=== PATIENT | male | born 1955 | race Caucasian/White ===

== ENCOUNTER 2020-04-01 23:58 | Emergency (ER) | payer OTHER, SELFPAY ==
[2020-04-01 23:59] VITALS: BP 142/92; PULSE 79; RESP 18; TEMP 36.3; O2SAT 100; BMI 23.5
[2020-04-02] VITALS (7 sets, daily range): BP systolic 115–142; BP diastolic 78–95; PULSE 69–90; RESP 16–22; O2SAT 94–99
--- NOTE | 2020-04-02 00:07 | ED.DCSUM_ITS ---
History of Present Illness Chief Complaint: Foreign Body Informant: Patient Onset: Today Context: Sudden Onset - after eating chicken several hrs ago Timing: Continuous Quality: feels stuck Location: esophagus/chest Current Severity: Moderate Maximum Severity: Moderate Worsened by: trying to drink fluids Relieved by: nothing Narrative: Patient feels like he has an esophageal obstruction which she has had in the past due to a Schatzki's ring. 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 Cardenas, and since he used to come to this hospital he presents here not realizing that he no longer has privileges here. He is not having any choking or shortness of breath. He denies any abdominal pain. He has been drinking sips or gulps of water and multiple attempts to get up the past for the past several hours without any success, he vomits everything up every time he tries. Prior similar symptoms: Yes - Past Medical History (1) Schatzki's ring of distal esophagus Status: Chronic Past Medical History - Allergies and Home Meds Allergies/Adverse Reactions: Allergies Sulfa (Sulfonamide Antibiotics) Allergy (Verified 04/01/20 23:59) Hives Primary Care Physician: Hipolito Merritt MD [Primary Care Provider] - Doctors: Ronald - GI Surgical History: - - esoph dilatation Smoking Status: Former smoker Review of Systems General: Denies: Chills, Fever, Sweats Eyes: Denies: Visual changes - bilaterally, Diplopia ENT: Denies: Rhinorrhea, Sore throat Cardiovascular: Denies: Chest pain, Palpitations Respiratory: Denies: Dyspnea, Cough, Dyspnea on exertion Gastrointestinal: Reports: Vomiting - when drinks/eats. Denies: Abdominal pain, Nausea, Diarrhea, Melena, Hematochezia Genitourinary: Denies: Dysuria, Hematuria, Frequency Musculoskeletal: Denies: Back pain, Extremity Pain Skin: Denies: Rash, Wounds Neurological: Denies: Headache, Weakness, Numbness Physical Exam Vital Signs/Narrative: Vital Signs Temp Pulse Resp BP Pulse Ox 04/01/20 23:59 97.4 F L 79 18 142/92 H 100 Inital Vital Signs reviewed: Yes General: Well nourished, Well developed, No Acute Distress Head: Normocephalic, Atraumatic Eyes: Perrl, EOMI ENT: Moist mucous membranes, No rhinorrhea, - - POP clear Neck: Supple, Nontender Cardiovascular: Regular rate, Regular rhythm, No murmurs. Negative for: Tachycardia Respiratory: No distress, CTA bilaterally, Chest nontender Abdomen: Soft, Nontender, Nondistended, Normal bowel sounds Extremities: Nontender, No edema Skin: Normal color, No rash Neurological: Alert, Oriented x3, Cranial nerves II-XII grossly intact, Normal Strength, Normal Sensation, Normal Gait Psychological: Normal affect, Normal Mood Diagnostic/Tx/Re-eval - Medical Decision Making Discussed with surgery on-call Dr. Salas who called in endoscopy and performed EGD at the bedside in the emergency department while I performed procedural sedation. Indeed the patient had a food bolus at the distal esophagus consistent with his prior Schatzki's ring diagnosis. There is some minor bleeding and irritation at the level of the distal esophagus after pushing the food into the stomach, but no major bleeding or other complications. Patient will be placed on a PPI, soft diet, will follow up afterwards for dilatation. Procedures Procedure(s): Procedural sedation --patient was consented for procedural sedation so that surgeon could perform bedside EGD. He had no questions after informed consent. He was monitored, given IV fluids, and his oxygen levels were monitored throughout the procedure. Patient was given propofol 100 mg, he is 81 kg. He required an additional 50 mg to be given a little later. He recovered uneventfully and there were no complications. ED Disposition - Plan for ED Patient: Diagnosis: Esophageal obstruction due to food impaction, Schatzki's ring of distal esophagus Instructions: ED Esophageal Foreign Body, Resolved, ED Soft Diet Prescriptions: Pantoprazole Sodium 40 mg PO DAILY #30 tablet. Prescription Printed Referrals: Alexey Salas MD [STAFF PHYSICIAN] - 1-2 Weeks (Call for appointment) Additional Instructions: Stick with a soft diet for the next 48 hours. When eating meat after that, chew well before swallowing.
[2020-04-02] MEDS: 0.9% Normal Saline 1,000 ML 150 ML IV (01:11)
[2020-04-02] MEDS: Propofol 200 MG/20 ML Vial IV BOLUS (01:13)
--- NOTE | 2020-04-02 01:25 | CON.PCM_ITS ---
Problem List (1) Esophageal obstruction due to food impaction Status: Acute Reason for Consult Date of Consultation: 04/02/20 History of Present Illness: The patient is a 64 year old M presents after eating chicken reporting that he feels like it is stuck in his throat. He reports that he has had this happen several times and he has had 3 dilations of his distal esophagus. Past Medical History Past Medical History (Chronic Problems): Chronic Problems Schatzki's ring of distal esophagus (Chronic) Allergies Sulfa (Sulfonamide Antibiotics) Allergy (Verified 04/01/20 23:59) Hives Home Medications: Ambulatory Orders Medication Instructions Recorded Pantoprazole Sodium 40 mg PO DAILY #30 tablet. 04/02/20 Surgical History: - - esoph dilatation Smoking Status: Former smoker Tobacco Use: Non-smoker - *Family History Maternal History Items: No pertinent history Review of Systems Constitutional: Denies: Anorexia, Fever HEENT: Reports: Dysphasia Cardiovascular: Denies: Chest Pain Respiratory: Denies: Cough, Shortness of Breath Gastrointestinal: Reports: Vomiting. Denies: Abdominal Pain, Nausea Genitourinary: Denies: Frequency Neurological: Denies: Balance problems Hematologic/ Lymphatic: Denies: Adenopathy Patient Problems: Active and Suspected Problems Esophageal obstruction due to food impaction (Acute) - Physical Exam Vitals/I&O's: Vital Signs Temp Pulse Resp BP Pulse Ox 97.4 F L 77 16 115/78 96 04/01/20 23:59 04/02/20 01:23 04/02/20 01:23 04/02/20 01:23 04/02/20 01:23 Oxygen Flow Rate (L/min) [3] 2 Oxygen Flow Rate (L/min) [2] 2 Oxygen Flow Rate (L/min) [1 ( 2 Initial Baseline)] Oxygen Flow Rate (L/min) 2 Oxygen Delivery Method [3] Nasal Cannula Oxygen Delivery Method [2] Nasal Cannula Oxygen Delivery Method [1 ( Nasal Cannula Initial Baseline)] Oxygen Delivery Method Nasal Cannula Weight: 178 lb 5.663 oz Body Mass Index (BMI) 23.5 General: Alert, Oriented x3 Neck: No JVD Lungs: Normal air movement Cardiovascular: Regular rate, Regular Rhythm Abdomen: Soft, Non Tender, Non-Distended Extremities: No clubbing Musculoskeletal: No Muscle Wasting Current Medications Sodium Chloride () 1,000 mls @ 150 mls/hr IV .[id number] [facility] Last Admin: 04/02/20 01:11 Dose: 150 mls/hr Documented by: Assessment/Plan All Active Problems Esophageal obstruction due to food impaction (Acute) 64-year-old male with food impaction 1. The patient has had several food impactions in the past and has had several dilations. I discussed EGD with removal of the foreign body with the patient and I discussed the risks of the procedure including bleeding and perforation. The patient understood the risks and we performed an EGD in the emergency room under conscious sedation provided by the emergency room physician. 2.The food bolus was pushed into the stomach and the patient appeared to have a benign stricture at the GE junction. I would like the patient discharged on a PPI and have him follow-up with me for elective EGD with dilation. Alexey Salas MD Pager: [facility] [address] [place] [address] [address] [place] [address] Office:
--- NOTE | 2020-04-02 01:31 | OP.EGD_ITS ---
Patient Name: Jim Segovia Procedure Date: 04/02/2020 1:08 AM Date of : 1955 Age: 64 Procedure: Upper GI endoscopy Indications: Foreign body in the esophagus Providers: Alexey Salas MD Medicines: Monitored Anesthesia Care Patient Profile: This is a 64 year old male. Refer to note in patient chart for documentation of history and physical. Complications: No immediate complications. Estimated blood loss: Minimal. Procedure: Pre-Anesthesia Assessment: - Prior to the procedure, a History and Physical was performed, and patient medications and allergies were reviewed. The patient's tolerance of previous anesthesia was also reviewed. The risks and benefits of the procedure and the sedation options and risks were discussed with the patient. All questions were answered, and informed consent was obtained. Prior Anticoagulants: The patient has taken no previous anticoagulant or antiplatelet agents. After reviewing the risks and benefits, the patient was deemed in satisfactory condition to undergo the procedure. After obtaining informed consent, the endoscope was passed under direct vision. Throughout the procedure, the patient's blood pressure, pulse, and oxygen saturations were monitored continuously. The Endoscope was introduced through the mouth, and advanced to the second part of duodenum. The upper GI endoscopy was accomplished without difficulty. The patient tolerated the procedure well. Scope In: 1:14:36 AM Scope Out: 1:17:19 AM Total Procedure Duration Time 0 hours 2 minutes 43 seconds Findings: Food was found at the gastroesophageal junction. Food was advanced into the stomach. One benign-appearing, intrinsic stenosis was found at the gastroesophageal junction. This stenosis was moderately severe (circumferential scarring or stenosis; an endoscope may pass) and. The stenosis was traversed. The stomach was normal. Impression: - Food was found in the esophagus. Removal was successful. - Benign-appearing esophageal stenosis. - Normal stomach. Recommendation: - Discharge patient to home. - Resume previous diet. - Continue present medications. - Return to my office in 2 weeks. Procedure Code(s): --- Professional --- 83608, Esophagogastroduodenoscopy, flexible, transoral; with removal of foreign body(s) Diagnosis Code(s): --- Professional --- T18.128A, Food in esophagus causing other injury, initial encounter K22.2, Esophageal obstruction T18.108A, Unspecified foreign body in esophagus causing other injury, initial encounter CPT copyright 2017 [employer]. All rights reserved. The codes documented in this report are preliminary and upon starbucks clerk review may be revised to meet current compliance requirements. Alexey Salas MD 04/02/2020 1:31:01 AM This report has been signed electronically. Number of Addenda: 0 Note Initiated On: 04/02/2020 1:08 AM
--- NOTE | 2020-04-02 01:31 | OP.CCLET_ITS ---
04/02/2020 Hipolito Merritt Re : Upper GI endoscopy procedure for Jim Cook René This procedure was performed on Thursday, April 02, 2020. My impressions and recommendations are as follows: Impressions : - Food was found in the esophagus. Removal was successful. - Benign-appearing esophageal stenosis. - Normal stomach. Recommendations : - Discharge patient to home. - Resume previous diet. - Continue present medications. - Return to my office in 2 weeks. My findings are described in the full procedure note, which is enclosed. If I can be of further assistance, please feel free to contact me at Doctor phone number(s): , Work: . Sincerely, Alexey Salas MD 04/02/2020 1:31:01 AM This report has been signed electronically.
--- NOTE | 2020-04-02 01:43 | ED.RN ---
PT ABLE TO DRINK A CUP OF WATER WITHOUT ANY DISTRESS.
== END 2020-04-02 01:47 | disposition home or self-care (01) ==
PROVIDERS: Surgery; Emergency Provider Emergency Medicine; PCP Family Medicine
PROC: 0DJ08ZZ Inspection of Upper Intestinal Tract, Via Natural or Artificial Opening Endoscopic (ICD-10-PCS; CPT 43235; principal; 2020-04-02 06:05)
DX: K22.2 Esophageal obstruction (principal); T18.128A Food in esophagus causing other injury, initial encounter; X58.XXXA Exposure to other specified factors, initial encounter; Y93.9 Activity, unspecified; Y92.9 Unspecified place or not applicable; Z87.891 Personal history of nicotine dependence
CPT/HCPCS: 43247; 96360; 99156; 99284

== ENCOUNTER 2022-01-15 18:47 | Day surgery (SDC) | payer SELFPAY ==
--- NOTE | 2022-01-15 | IMM_PTH ---
PATIENT: GISSEL GUAJARDO LOC: EN U#:[id number] AGE/SX: 66/M ROOM: RE01/15/[address]: Dr. Carter Maldonado DO : 1955 BED: DIS: 01/16/2022 SPEC #: [id number] RECD: 01/17/22 14:05 STATUS: PAULINE REQ #: [id number] JERRI: 01/15/22 00:[address]: Carter Maldonado DEPT: IMMUNOHISTOCHEMISTRY RECD BY: Huong Thakur ENTERED: 01/17/22 14:06 SP TYPE: IMMUNO OTHR DR: Dr. Hipolito Merritt MD Tissues: Esophagus, NOS Procedures: P53 (initial) KI-67 (add) PHYSICIAN & INSTITUTION [facility] [place] [id number] SPECIMEN INFORMATION: Tissue Source: Esophagus Clinical Info: Nadine ring of distal esophagus, food bolus Specimen Number: [id number] CPT code: 92951, 01982 METHODOLOGY: Deparaffinized sections of prefer/formalin-fixed tissue or PAP/DQ stained slides are incubated with monoclonal/polyclonal antibodies/oligonucleotide probes. Localization is made via biotin free immunoperoxidase method. Appropriate controls are performed and reacted as expected. Results on target cell population are indicated in the following table: RESULTS: ANTIBODY / CLONE RESULT P53 (DO-7) negative Ki-67 (30-9) positive, low These tests were developed and their performance characteristics determined by [facility]. They may not have been cleared or approved by the U.S. Food and Drug Administration. The FDA has determined that such clearance or approval is not necessary. The above immunohistochemical/dualISH markers are ordered and reviewed by the Pathologist. INTERPRETATION: Esophagus, random biopsy: Negative for dysplasia. BUCK:kaleb 01/18/2022
--- NOTE | 2022-01-15 | ESO_PTH ---
PATIENT: GISSEL GUAJARDO LOC: EN U#:[id number] AGE/SX: 66/M ROOM: RE01/15/[address]: Dr. Carter Maldonado DO : 1955 BED: DIS: 01/16/2022 SPEC #: [id number] RECD: 01/15/22 23:38 STATUS: PAULINE VAN #: [id number] JERRI: 01/15/22 00:[address]: Carter Maldonado DEPT: SURGICAL PATHOLOGY RECD BY: Gabriel Merritt ENTERED: 01/16/22 10:01 SP TYPE: STELLA MENDES DR: Dr. 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 Moderate chronic inflammation and minimal acute inflammation. Focal changes suggestive of eosinophilic esophagitis. Negative for dysplasia. See comment. BUCK:kaleb 01/17/2022 COMMENT Increased number of eosinophils (10-15 per high power field) suggestive of eosinophilic esophagitis are noted. Alcian blue/PAS stain with matched control is used in the evaluation of the specimen. Immunohistochemistry ([id number]) for P53 and Ki-67 will be performed and results will be reported separately. MICROSCOPIC DESCRIPTION Slides are reviewed. GROSS DESCRIPTION Received in fixative is one container labeled with the patient's name and designated random esophagus. The specimen consists of multiple irregular fragments of light starr soft tissue that in aggregate measure 1.5 x 0.5 x 0.1 cm. The specimen is totally submitted in one cassette. / BUCK:kaleb 01/16/2022 TC:3 CPT: 23687, 74499
[2022-01-15 18:48] VITALS: BP 151/73; PULSE 109; RESP 17; TEMP 36.4; O2SAT 100; BMI 24.4
--- NOTE | 2022-01-15 20:47 | EDS_ITS ---
HPI HPI - GI History of Present Illness Chief Complaint: Foreign Body Narrative Narrative: 66-year-old male presenting with food bolus impaction. He states he was eating chicken at about 530 today and have impacted. He states he periodically has to spit up his secretions. He is having trouble swallowing. He states that he has had this several times in the past and had food impactions removed in the emergency room. He states that although he seen several GI doctors who did this for him he is never followed up with any of them. It was recommended for him to be on a PPI but he states he does not take 1. He denies any other medical problems. He states he takes no other meds. [facility] Medical History (Updated 01/15/22 @ 21:14 by Lorene Muir) Food impaction of esophagus Home Medications pantoprazole 40 mg tablet,delayed release 40 mg PO DAILY ##30 04/02/20 [Rx Last Taken Unknown] Allergy/AdvReac Type Severity Reaction Status Date / Time Sulfa (Sulfonamide Allergy Hives Verified 01/15/22 18:50 Antibiotics) Social History Smoking Status: Former smoker ROS ROS ED Constitutional Constitutional ED: Denies chills or fever(s) ENT ENT ED: Denies rhinorrhea or sore throat Cardiovascular Cardiovascular: Denies chest pain or palpitations Respiratory/Chest Respiratory/Chest: Denies cough or dyspnea Gastrointestinal Gastrointestinal: Denies abdominal pain or nausea Genitourinary Genitourinary ED: Denies dysuria or hematuria Musculoskeletal Musculoskeletal: Denies arthralgias or back pain Integumentary Denies abscess Neurologic Neurologic: Denies headache(s) or paresthesias Psychiatric Psychiatric: Denies anxiety or depression EXAM Physical Exam Const Vital Signs: 01/15/22 18:48 01/15/22 21:14 01/15/22 22:23 Temperature 97.6 F L Temperature Source Temporal Pulse Rate 109 H Respiratory Rate 17 Respiratory Effort Normal Non-Labored Respiratory Pattern Normal Blood Pressure 151/73 H Blood Pressure Mean 99 Blood Pressure Source Blood Pressure Position Blood Pressure Location Baseline BP Pulse Ox 100 Oxygen Delivery Method Room Air Room Air 01/15/22 22:48 01/15/22 23:35 01/15/22 23:40 Temperature 98.2 F 98.9 F Temperature Source Temporal Temporal Pulse Rate 88 93 102 H Respiratory Rate 18 18 20 H Respiratory Effort Respiratory Pattern Normal Blood Pressure 134/75 H 115/68 93/77 Blood Pressure Mean 94 83 82 Blood Pressure Source Monitor Monitor Blood Pressure Position Semi-Fowlers Semi-Fowlers Blood Pressure Location Left Arm Left Arm Baseline BP 134/75 134/75 Pulse Ox 99 95 97 Oxygen Delivery Method Room Air Room Air Room Air 01/15/22 23:45 Temperature Temperature Source Pulse Rate 93 Respiratory Rate 16 Respiratory Effort Respiratory Pattern Blood Pressure 133/84 H Blood Pressure Mean 100 Blood Pressure Source Monitor Blood Pressure Position Semi-Fowlers Blood Pressure Location Left Arm Baseline BP 134/75 Pulse Ox 97 Oxygen Delivery Method Room Air Positive well nourished General Appearance ED: Negative for NAD or pallor HEENT Denies TM's clear or moist mucous membranes Negative for normocephalic or atraumatic Tympanic Membrane ED: Negative for TM's clear Eyes Negative for PERRL or EOMs intact bilaterally Resp normal respiratory effort and clear to auscultation bilaterally Auscultation: Negative for rales, rhonchi or wheezes Cardio Negative for regular rate or regular rhythm GI Negative for non-tender or non-distended Neuro CN's II-XII intact bilaterally Sensorium / Orientation: alert, oriented to person and oriented to place Motor Exam: strength 5/5 throughout Psych mental status grossly normal Skin no wounds General Skin Exam: Negative for jaundice or pallor MDM MDM MDM Narrative Medical decision making narrative: Patient presenting with food bolus impaction in esophagus. He was given glucagon without success. Patient was discussed with Dr. Maldonado and he came to the ER and took him to the endoscopy suite. I suspect he will be discharged from the endoscopy suite. Impression: 1 impacted food with Lab Data Attestation: I reviewed the patient's lab results. Discharge Plan Disposition Disposition: Acute Care Hospital [facility] Discharge Date/Time: 01/15/22 22:50
[2022-01-15] MEDS: Glucagon 1 MG/ML Syringe IV (21:12)
--- NOTE | 2022-01-15 22:09 | HP.PCM_ITS ---
HPI - General General Date of Service: 01/15/22 Chief Complaint: Food impaction HPI Narrative GISSEL GUAJARDO, is a 66 M who presents after eating chicken reporting that he feels like it is stuck in his throat.? He reports that he has had this happen several times and he has had 4 dilations of his distal esophagus. He states he was eating chicken at about 530 today and have impacted.? He states he periodically has to spit up his secretions.? He is having trouble swallowing.? He states that he has had this several times in the past and had food impactions removed in the emergency room.? He states that although he seen several GI doctors who did this for him he is never followed up with any of them.? It was recommended for him to be on a PPI but he states he does not take 1.? He denies any other medical problems.? He states he takes no other meds. [facility] Medical History (Updated 01/15/22 @ 21:14 by Lorene Muir) Food impaction of esophagus Home Medications pantoprazole 40 mg tablet,delayed release 40 mg PO DAILY ##30 04/02/20 [Rx Last Taken Unknown] Allergy/AdvReac Type Severity Reaction Status Date / Time Sulfa (Sulfonamide Allergy Hives Verified 01/15/22 18:50 Antibiotics) Social History Smoking Status: Former smoker ROS Review of Systems ROS Unobtainable: other Constitutional Constitutional: Denies fatigue, fever(s), poor appetite, weight gain or weight loss ENT HEENT: Denies mouth lesions Cardiovascular Cardiovascular: Denies abdominal bloating, abdominal edema or abdominal pain Respiratory/Chest Respiratory/Chest: Denies change in mental status, change in phlegm color, chest congestion or chest tightness Gastrointestinal Gastrointestinal: Denies belching, bloating, change in bowel habits, change in stool character, chewing difficulty, coffee ground emesis, constipation, cramping, diarrhea, dyspepsia, dysphagia, early satiety, excessive flatus, fecal incontinence, heartburn, hematemesis, hematochezia, hemorrhoids, loose stools, melena, nausea, odynophagia, rectal bleeding, tenesmus, vomiting or weight c nesha Genitourinary Genitourinary: Denies abdominal discomfort, burning urination or itching Musculoskeletal Musculoskeletal: Reports as per HPI; Denies muscle weakness or myalgias Integumentary Integumentary: Denies jaundice Neurologic Neurologic: Denies lack of coordination or weakness Psychiatric Psychiatric: Denies confusion, depression, memory loss, mood swings, paranoia or suicidal ideation Endocrine Endocrinology: Denies systems reviewed and no addt'l complaints, except as documented Hematologic/Lymphatic Hematologic/Lymphatic: Denies anemia, easy bleeding, easy bruising or lymphadenopathy Allergic/Immunologic Allergic/Immunologic: Denies systems reviewed and no addt'l complaints, except as documented Vital Signs Vital Signs Vital Signs: 01/15/22 18:48 01/15/22 21:14 Temperature 97.6 F L Temperature Source Temporal Pulse Rate 109 H Respiratory Rate 17 Respiratory Effort Normal Non-Labored Respiratory Pattern Normal Blood Pressure 151/73 H Blood Pressure Mean 99 Pulse Ox 100 Oxygen Delivery Method Room Air Weight Weight: 185 lb Body Mass Index (BMI) 24.4 Assessment & Plan Assessment/Plan (1) Schatzki's ring of distal esophagus: PLAN: He will undergo an EGD with esophageal food impaction removal. He was explained alternatives, risk, benefits include not withstanding bleeding, infection, sepsis, perforation, need for emergent surgery and . He will have an ASA of 1.
[2022-01-15 22:48] VITALS: BP 134/75; PULSE 88; RESP 18; TEMP 36.8; O2SAT 99
[2022-01-15 23:35] VITALS: BP 115/68; BP 134/75; PULSE 93; RESP 18; TEMP 37.2; O2SAT 95
--- NOTE | 2022-01-15 23:35 | OP.EGD_ITS ---
Patient Name: Jim Segovia Procedure Date: 01/15/2022 10:56 PM Date of : 1955 Age: 66 Procedure: Upper GI endoscopy Indications: Dysphagia Providers: Carter Maldonado DO Referring MD: Carter Maldonado DO Medicines: Monitored Anesthesia Care Patient Profile: This is a 66 year old male. Refer to note in patient chart for documentation of history and physical. Patient has symptoms of acute dysphagia. Complications: No immediate complications. Procedure: Pre-Anesthesia Assessment: - Prior to the procedure, a History and Physical was performed, and patient medications and allergies were reviewed. The patient is competent. The risks and benefits of the procedure and the sedation options and risks were discussed with the patient. All questions were answered and informed consent was obtained. Patient identification and proposed procedure were verified by the physician in the pre-procedure area. Mental Status Examination: alert and oriented. Airway Examination: normal oropharyngeal airway and neck mobility. Respiratory Examination: clear to auscultation. CV Examination: normal. Prophylactic Antibiotics: The patient does not require prophylactic antibiotics. Prior Anticoagulants: The patient has taken no previous anticoagulant or antiplatelet agents. ASA Grade Assessment: II - A patient with mild systemic disease. After reviewing the risks and benefits, the patient was deemed in satisfactory condition to undergo the procedure. The anesthesia plan was to use monitored anesthesia care (MAC). Immediately prior to administration of medications, the patient was re-assessed for adequacy to receive sedatives. The heart rate, respiratory rate, oxygen saturations, blood pressure, adequacy of pulmonary ventilation, and response to care were monitored throughout the procedure. The physical status of the patient was re-assessed after the procedure. After obtaining informed consent, the endoscope was passed under direct vision. Throughout the procedure, the patient's blood pressure, pulse, and oxygen saturations were monitored continuously. The gastroscope was introduced through the mouth, and advanced to the second part of duodenum. The upper GI endoscopy was accomplished without difficulty. The patient tolerated the procedure well. Scope In: 11:05:41 PM Scope Out: 11:27:16 PM Total Procedure Duration Time 0 hours 21 minutes 35 seconds Findings: Mucosal changes including ringed esophagus, small-caliber esophagus and circumferential folds were found in the proximal esophagus, in the mid esophagus and in the distal esophagus. Esophageal findings were graded using the Eosinophilic Esophagitis Endoscopic Reference Score (EoE-EREFS) as: Edema Grade 1 Present (decreased clarity or absence of vascular markings) and Stricture present. Biopsies were obtained from the proximal and distal esophagus with cold forceps for histology of suspected eosinophilic esophagitis. Verification of patient identification for the specimen was done. Estimated blood loss was minimal. One benign-appearing, intrinsic stenosis was found 37 to 39 cm from the incisors. This stenosis was severe (stenosis; an endoscope cannot pass) and measured 2 mm (inner diameter) x 4 cm (in length). The stenosis was traversed after dilation. A TTS dilator was passed through the scope. Dilation with a 12-13.5-15 mm balloon dilator was performed to 15 mm. The dilation site was examined following endoscope reinsertion and showed moderate improvement in luminal narrowing. Estimated blood loss was minimal. Coagulation for hemostasis using argon plasma at 0.3 liters/minute and 20 sy was successful. Estimated blood loss was minimal. Food was found in the lower third of the esophagus. Removal of food was accomplished. Verification of patient identification for the specimen was done. Estimated blood loss was minimal. A medium-sized hiatal hernia was present. No gross lesions were noted in the entire examined stomach. No gross lesions were noted in the second portion of the duodenum. Impression: - Esophageal mucosal changes consistent with eosinophilic esophagitis. Biopsied. - Benign-appearing esophageal stenosis. Dilated. Treated with argon plasma coagulation (APC). - Food in the lower third of the esophagus. Removal was successful. - Medium-sized hiatal hernia. - No gross lesions in the stomach. - No gross lesions in the second portion of the duodenum. Recommendation: - Discharge patient to home. - Clear liquid diet for 2 days. - Use Protonix (pantoprazole) 40 mg PO BID. - Continue present medications. Procedure Code(s): --- Professional --- 85876, 59, Esophagogastroduodenoscopy, flexible, transoral; with control of bleeding, any method 16738, Esophagogastroduodenoscopy, flexible, transoral; with removal of foreign body(s) 86581, Esophagogastroduodenoscopy, flexible, transoral; with transendoscopic balloon dilation of esophagus (less than 30 mm diameter) 67649, 59,51, Esophagogastroduodenoscopy, flexible, transoral; with biopsy, single or multiple CPT copyright 2017 [employer]. All rights reserved. The codes documented in this report are preliminary and upon seating captain review may be revised to meet current compliance requirements. Carter Maldonado DO 01/15/2022 11:34:34 PM This report has been signed electronically. Number of Addenda: 0 Note Initiated On: 01/15/2022 10:56 PM
--- NOTE | 2022-01-15 23:35 | OP.CCLET_ITS ---
01/15/2022 Hipolito Merritt Re : Upper GI endoscopy procedure for Jim Reynagavince Merritt This procedure was performed on Saturday, January 15, 2022. My impressions and recommendations are as follows: Impressions : - Esophageal mucosal changes consistent with eosinophilic esophagitis. Biopsied. - Benign-appearing esophageal stenosis. Dilated. Treated with argon plasma coagulation (APC). - Food in the lower third of the esophagus. Removal was successful. - Medium-sized hiatal hernia. - No gross lesions in the stomach. - No gross lesions in the second portion of the duodenum. Recommendations : - Discharge patient to home. - Clear liquid diet for 2 days. - Use Protonix (pantoprazole) 40 mg PO BID. - Continue present medications. My findings are described in the full procedure note, which is enclosed. If I can be of further assistance, please feel free to contact me at . Sincerely, Carter Maldonado, 01/15/2022 11:34:34 PM This report has been signed electronically.
[2022-01-15 23:40] VITALS: BP 134/75; BP 93/77; PULSE 102; RESP 20; O2SAT 97
[2022-01-15 23:45] VITALS: BP 133/84; BP 134/75; PULSE 93; RESP 16; O2SAT 97
[2022-01-15 23:50] VITALS: BP 118/72; BP 134/75; PULSE 84; RESP 16; TEMP 36.7; O2SAT 97
[2022-01-15] MEDS: Mag Hydrox/Al Hydrox/Simeth 30 ML UDC PO (23:58)
[2022-01-16 00:20] VITALS: BP 134/75
== END 2022-01-16 00:25 | disposition home or self-care (01) ==
LOC: ED 20:54 → EN 22:29 → AC 22:29
PROVIDERS: Emergency Provider Student in an Organized Health Care Education/Training Program; PCP Family Medicine; Referring Provider Internal Medicine Gastroenterology; Visit Provider Internal Medicine Gastroenterology
PROC: 0DJ08ZZ Inspection of Upper Intestinal Tract, Via Natural or Artificial Opening Endoscopic (ICD-10-PCS; CPT 43235; principal; 2022-01-15 22:45)
DX: K22.2 Esophageal obstruction (principal); T18.108A Unspecified foreign body in esophagus causing other injury, initial encounter; K44.9 Diaphragmatic hernia without obstruction or gangrene; R13.10 Dysphagia, unspecified; Z87.891 Personal history of nicotine dependence
CPT/HCPCS: 43239; 43247; 43249; 43255; 88305; 88313; 88341; 88342; 99284; A4216; J1610; J2405

== ENCOUNTER 2024-04-01 18:11 | Observation (INO) | payer OTHER, MEDICARE, SELFPAY ==
[2024-04-01] VITALS (7 sets, daily range): BP systolic 116–141; BP diastolic 75–94; PULSE 72–98; RESP 16–18; TEMP 36.2–36.8; O2SAT 95–100; BMI 28.3
--- NOTE | 2024-04-01 20:42 | EX.ED.DYSGE1 ---
HPI History of Present Illness Chief Complaint: Foreign Body [facility] Medical History Food impaction of esophagus Home Medications ?Medication ?Instructions ?Recorded ?Last Taken ?Type NK 04/01/24 Unknown History Allergy/AdvReac Type Severity Reaction Status Date / Time Sulfa (Sulfonamide Allergy Hives Verified 04/01/24 18:14 Antibiotics) Social History Smoking Status: Former smoker EXAM Physical Exam Const Vital Signs: 04/01/24 18:14 04/01/24 19:12 04/01/24 19:40 Temperature 97.1 F L Temperature Source Temporal Pulse Rate 98 72 Respiratory Rate 18 17 Respiratory Effort Normal Non-Labored Respiratory Pattern Normal Blood Pressure 141/86 H 129/75 H Blood Pressure Mean 104 93 Pulse Ox 99 98 Oxygen Delivery Method Room Air Room Air 04/01/24 20:00 04/01/24 21:00 04/01/24 22:00 Temperature Temperature Source Pulse Rate 80 83 77 Respiratory Rate 18 18 18 Respiratory Effort Respiratory Pattern Blood Pressure 124/77 H 116/94 H 129/86 H Blood Pressure Mean 92 101 100 Pulse Ox 97 100 97 Oxygen Delivery Method Room Air Room Air Room Air 04/01/24 22:29 Temperature 98.3 F Temperature Source Pulse Rate 72 Respiratory Rate 16 Respiratory Effort Respiratory Pattern Blood Pressure 128/80 H Blood Pressure Mean 96 Pulse Ox 98 Oxygen Delivery Method MDM MDM MDM Narrative Medical decision making narrative: HISTORY OF PRESENT ILLNESS: 68-year-old male presents with concern for esophageal foreign body. Notes he feels like he has a piece of steak stuck in his throat. He noticed this began at 5 PM. He notes he is had to see Dr. Maldonado (plant custodian) have the foreign body patch removed via endoscopy. REVIEW OF SYSTEMS: Pertinent positives: Esophageal foreign body sensation Pertinent negatives: Fever, chest pain PHYSICAL EXAM: Nursing triage notes reviewed, Vital signs reviewed Constitutional: please see mdm HENT: MMM Eyes: Pupils equal round and reactive to light, Extraocular muscles intact Neck: No stridor, no JVD, full neck ROM Lungs: Clear to auscultation, No wheezing or rales. No increased work of breathing, no conversational dyspnea, no accessory muscle use, no nasal flaring. No respiratory distress noted Heart: Regular rate and rhythm, No murmurs, No rubs and No gallops, 2+ distal pulses (radial, femoral, posterior tibial) in all extremities Abdomen: Soft, there is no tenderness, rigidity, rebound or guarding, no obvious peritoneal signs, no palpable pulsatile abdominal masses, no auscultated abdominal bruit : No CVAT Extremities: No edema Neuro: No new focal neurological deficits, cranial nerves II through XII intact, 5/5 strength in all present extremities. Intact sensation to light touch in all present extremities, 2+ reflexes bilateral patella tendons. Skin: No rash or lesions noted MEDICAL DECISION MAKING: Chief Complaint: Esophageal foreign body External records reviewed: Reviewed prior GI note from 2021. Reviewed prior EGDs Factors affecting care: . Esophagus,, Schatzki's ring of distal esophagus, hiatal hernia Social determinants of health: Former smoker History obtained from others: none Consults: Dr. Maldonado (Motion Picture Camera Operator) -noted he could see the patient in the morning. MDM Narrative: The patient was initially hemodynamically stable, afebrile and nontoxic. Exam without drooling, no significant respiratory distress. Patient was spitting into an emesis basin. I considered the following differential diagnosis: Esophageal foreign body, arrhythmia, pneumothorax I obtained a chest x-ray, basic labs and EKG. I consulted the plant custodian immediately. I offered symptomatic therapy in terms of Zofran, glucagon however patient refused. ALL IMAGES (IF OBTAINED) HAVE BEEN PERSONALLY REVIEWED AND INTERPRETED BY MYSELF. Chest x-ray ordered but refused by patient CBC without leukocytosis, severe anemia, no thrombocytopenia. BMP without evidence of significant electrolyte abnormalities, no anion gap, no acute kidney injury. EKG with normal sinus rhythm, normal axis, normal intervals, no STEMI The synthesis of the patient's history, physical exam, labs images suggest likely esophageal food impaction. Discussed with the GI doctor on-call Dr. Maldonado who noted he could see the patient tomorrow despite him not being on-call this time. He recommends admission for observation overnight while awaiting him to perform definitive endoscopy tomorrow. The patient and/or family, caregivers express understanding. The patient and/or family, caregivers agrees with the plan. Shared decision making: I will have a discussion with the patient and or visitors regarding risk/benefits of further testing or admission. They will be made aware of of the risk/benefits inherent in this decision they will be given the opportunity to voice understanding. Total critical care time today provided was at least 0 minutes. This excludes separately billable procedures. Critical care time (if documented) is secondary to the patient having high probability of clinically significant/life threatening deterioration in the patient's condition which required my urgent intervention. Impression: 1. Esophageal foreign body 2. History of Schatzki ring Dispo: Admit to medicine This note was generated with [employer] dictation software. It may contain incorrect words, spelling, and punctuation that were not noted in review of the chart prior to signing. Lab Data Labs: Laboratory Results - last 24 hr 04/01/24 21:02 WBC 6.1 RBC 4.59 L Hgb 14.0 Hct 42.1 MCV 91.7 MCH 30.5 MCHC 33.3 RDW Std Deviation 39.6 RDW Coeff of Salome 11.8 Plt Count 298 MPV 9.2 Immature Gran % (Auto) 0.300 Neut % (Auto) 64.1 Lymph % (Auto) 24.1 Hartley % (Auto) 7.4 Eos % (Auto) 3.0 Baso % (Auto) 1.1 H Absolute Neuts (auto) 3.9 Absolute Lymphs (auto) 1.47 Nucleated RBC % 0 Sodium 140 Potassium 4.2 Chloride 107 Carbon Dioxide 28.0 Anion Gap 5 BUN 14 Creatinine 1.12 Estim Creat Clear Calc 74.29 Est GFR (MDRD) Af Amer 83 Est GFR (MDRD) Non-Af 69 BUN/Creatinine Ratio 12.5 Glucose 104 Calcium 9.1 Discharge Plan Triage Chief Complaint: Foreign Body ED Provider: Rajan Madrid Dx/Rx/DC Orders Prescriptions: No Action NK Primary Care Provider: Hipolito Merritt Referrals: Hipolito Merritt MD [Primary Care Provider] - Print Language: Stateless
[2024-04-01 21:16] LABS: Absolute Lymphocyte Count 1.47 X10^3/uL (0.83-4.51); Absolute Neutrophil Count 3.9 X10^3/uL (2.0-7.7); Basophil# 0.07 X10^3/uL; Basophil% 1.1 % (0-1); Eosinophil# 0.18 X10^3/uL; Hematocrit 42.1 % (40-54); Lymphocyte # 1.47 X10^3/ul (0.83-4.51); Lymphocyte % 24.1 % (19-41); Mean Corp Hgb Conc 33.3 g/dL (32-36); Mean Corpuscular Hgb 30.5 pg (27.0-32.0); Mean Corpuscular Volume 91.7 fL (80-94); Mean Platelet Vol. 9.2 fl (6.2-12.0); Monocyte# 0.45 X10^3/uL; Monocyte% 7.4 % (0-10); NRBC Flagged by Analyzer 0 % (0-5); Neutrophil # 3.91 X10^3/uL (2.7-7.7); Neutrophil % 64.1 % (47-70); Platelet Count 298 K/mm3 (150-450); RBC Distribution Width CV 11.8 % (11.6-14.6); RBC Distribution Width SD 39.6 fl (35.1-43.9); Red Blood Count 4.59 M/mm3 (4.6-6.2); White Blood Count 6.1 K/mm3 (4.4-11.0)
[2024-04-01 21:28] LABS: Anion Gap 5 (5-15); BUN 14 mg/dL (7-18); BUN/Creat Ratio 12.5 RATIO (10-20); Calcium,Total 9.1 mg/dL (8.5-10.1); Chloride 107 mmol/L (98-107); Creatinine, Serum 1.12 mg/dL (0.70-1.30); EST Glomerular Filtration Rate 69 mL/min (>60); Est Glom Filt Rate - Afr Amer 83 mL/min (>60); Estimated Creatinine Clearance 74.29 ml/min; Glucose 104 mg/dL (74-106); Potassium 4.2 mmol/L (3.5-5.1); Sodium Level 140 mmol/L (136-145)
--- NOTE | 2024-04-01 22:48 | HP.PCM.HOS_ITS ---
HPI - General General Date of Admission: 04/01/24 Date of Service: 04/01/24 Chief Complaint: Food impaction. HPI Narrative The patient is a 68 y/o M w/ PMHx: Former tobacco use, GERD/Richter's esophagus with history of previous foreign body esophageal obstruction x 3 (chicken pieces each time) following with Dr. Maldonado outpatient who presents to the [facility] ED on 04/01/2024 with history of onset of sensation as though he had a piece of food stuck in his throat starting at 5 PM reporting that he had steak previous to this and sensation did not lucila prompting eventual ED evaluation. He noted this was completely similar to when he had the previous obstructions with chicken. He notes this occurred on his first bite and it was small. He refused imaging in the ED. Workup in the ED included T97.1, heart rate 98, BP 141/86, respiratory rate 18, 90% on room air with most recent repeat vitals T98.3, heart rate 72, BP 120/80, respiratory rate 16, 98% on room air, CBC with WBC 6.1, human 14, platelet 290 without marked shift, unremarkable BMP, EKG with sinus rhythm with no acute evidence of ischemia. In the ED patient administered 1 L normal saline. ED discussed case with gastroenterology Dr. Maldonado who noted availability at approximately 6 AM 04/02/2024 thus hospitalist service called for admission with planned endoscopy in AM. [facility] Medical History Former tobacco use GERD (gastroesophageal reflux disease) Barretts esophagus Food impaction of esophagus Home Medications ?Medication ?Instructions ?Recorded ?Last Taken ?Type NK 04/01/24 Unknown History Allergy/AdvReac Type Severity Reaction Status Date / Time Sulfa (Sulfonamide Allergy Hives Verified 04/01/24 18:14 Antibiotics) Family History (Updated 04/01/24 @ 23:[address] Jannet Grigsby MD) Mother Diabetes Father Asthma Surgical History H/O left inguinal hernia repair History of back surgery H/O arthroscopic knee surgery History of tonsillectomy and adenoidectomy History of endoscopy Social History (Updated 04/01/24 @ 23:[address] Jannet Grigsby MD) household members: none Smoking Status: Former smoker how long ago did patient quit smoking: Quit 35 years prior, 2 pack/day smoking from age 17 until quit. alcohol intake: never substance use type: does not use ROS ROS Narrative Admission Review of Systems: CONSTITUTIONAL: No weight loss, fever, chills, weakness or fatigue. HEENT: + Sensation of food items stuck in his throat immediately after swallowing first bite of steak. Eyes: No visual loss, blurred vision, double vision or yellow sclerae. Ears, Nose, Throat: No hearing loss, sneezing, congestion, runny nose or sore throat. SKIN: No rash or itching, lesions, wounds. CARDIOVASCULAR: No chest pain, chest pressure or chest discomfort, palpitations, edema, orthopnea, syncopal events. RESPIRATORY: No shortness of breath, cough or sputum, wheezing, hemoptysis. GASTROINTESTINAL: + Sensation of food stuck in his throat. No anorexia, nausea, vomiting or diarrhea, abdominal pain, melena, BRBPR. GENITOURINARY: No dysuria, frequency, urgency or retention. NEUROLOGICAL: No headache, dizziness, syncope, paralysis, ataxia, numbness or tingling in the extremities, focal weakness, change in bowel or bladder control, seizure. MUSCULOSKELETAL: No muscle, back pain, joint pain or stiffness. HEMATOLOGIC: No anemia, bleeding or bruising. LYMPHATICS: No enlarged nodes. No history of splenectomy. PSYCHIATRIC: No history of depression or anxiety. ENDOCRINOLOGIC: No reports of sweating, cold or heat intolerance. No polyuria or polydipsia. ALLERGIES: + History of hives. Vital Signs Vital Signs Vital Signs: 04/01/24 18:14 04/01/24 19:12 04/01/24 19:40 Temperature 97.1 F L Temperature Source Temporal Pulse Rate 98 72 Respiratory Rate 18 17 Respiratory Effort Normal Non-Labored Respiratory Pattern Normal Blood Pressure 141/86 H 129/75 H Blood Pressure Mean 104 93 Pulse Ox 99 98 Oxygen Delivery Method Room Air Room Air 04/01/24 20:00 04/01/24 21:00 04/01/24 22:00 Temperature Temperature Source Pulse Rate 80 83 77 Respiratory Rate 18 18 18 Respiratory Effort Respiratory Pattern Blood Pressure 124/77 H 116/94 H 129/86 H Blood Pressure Mean 92 101 100 Pulse Ox 97 100 97 Oxygen Delivery Method Room Air Room Air Room Air 04/01/24 22:29 Temperature 98.3 F Temperature Source Pulse Rate 72 Respiratory Rate 16 Respiratory Effort Respiratory Pattern Blood Pressure 128/80 H Blood Pressure Mean 96 Pulse Ox 98 Oxygen Delivery Method Weight Weight: 208 lb 6.4 oz Body Mass Index (BMI) 28.3 Physical Exam Narrative Physical Examination: General: Awake, alert, oriented x 3 and cooperative, seated upright in bed in no apparent distress. Skin: Normal color, normal turgor, no icterus, no cyanosis. HEENT: AT/NC, EOMI, PERRLA, mildly dry MM, no carotid bruits or JVD noted, no obvious findings in the oropharynx. Lungs: CTA bilaterally, moderate effort, mild decrease BL bases, no rales, ronchi or wheezing. Heart: Regular rate and rhythm; no gallop, rub audible. Abdomen: Soft, NTTP, ND, mildly hyperactive BS, no HSM. Extremities: No cyanosis, clubbing, or edema. Neurological: Patient awake, alert, oriented as noted, cognitive function intact; pupils equally reactive to light and accommodation, cranial nerves II- XII grossly normal, moving all 4 extremities, no focal deficits, strength preserved. Psychiatric: Affect appears fatigued otherwise normal, no acute evidence of depressive or anxiety feelings. Results Lab / Micro Data 04/01/24 21:02 04/01/24 21:02 Labs: Laboratory Results - last 24 hr 04/01/24 21:02: WBC 6.1, RBC 4.59 L, Hgb 14.0, Hct 42.1, MCV 91.7, MCH 30.5, MCHC 33.3, RDW Std Deviation 39.6, RDW Coeff of Salome 11.8, Plt Count 298, MPV 9.2, Immature Gran % (Auto) 0.300, Neut % (Auto) 64.1, Lymph % (Auto) 24.1, Kleberg % (Auto) 7.4, Eos % (Auto) 3.0, Baso % (Auto) 1.1 H, Absolute Neuts (auto) 3.9, Absolute Lymphs (auto) 1.47, Nucleated RBC % 0, Sodium 140, Potassium 4.2, Chloride 107, Carbon Dioxide 28.0, Anion Gap 5, BUN 14, Creatinine 1.12, Estim Creat Clear Calc 74.29, Est GFR (MDRD) Af Amer 83, Est GFR (MDRD) Non-Af 69, BUN/Creatinine Ratio 12.5, Glucose 104, Calcium 9.1 Assessment & Plan Assessment/Plan (1) Esophageal foreign body: PLAN: Plan The patient is a 68 y/o M w/ PMHx: Former tobacco use, GERD/Richter's esophagus with history of previous foreign body esophageal obstruction x 3 (chicken pieces each time) following with Dr. Maldonado outpatient who presents to the [facility] ED on 04/01/2024 with history of onset of sensation as though he had a piece of food stuck in his throat starting at 5 PM reporting that he had steak previous to this and sensation did not lucila prompting eventual ED evaluation. #1. Suspected acute foreign body esophageal obstruction, recurrent: Unfortunately ED patient refused any imaging, EKG unremarkable, labs unremarkable, notes exact presentation with previous obstructions, will admit to medical surgical floor, maintain on n.p.o. status, maintain on IV fluids as well as IV PPI with nausea medication as needed pending gastroenterology evaluation in the a.m. for upper endoscopy to remove foreign body. #2. Elevated BP without hypertensive diagnosis: Initial BP elevated above goal, likely secondary to acute presentation as noted, improved in the ED, appearing IV hydralazine. #3. GERD/history of Richter's esophagus: Will maintain on IV PPI given current presentation with n.p.o. status. #4. Former tobacco use: Encourage continued tobacco cessation. #5. DVT prophylaxis: Low risk for type of presentation. Charges/Coding Visit Charges Inpatient E&M: 24818 Init Hosp L2
--- NOTE | 2024-04-01 23:00 | EX.PCM.CON.G ---
HPI Consult Data Date of Consult: 04/01/24 HPI Narrative Reason for Consultation: Foreign body HPI Narrative: GISSEL GUAJARDO, is a 68 y/o M w/ PMHx: Former tobacco use, GERD/Richter's esophagus with history of previous foreign body esophageal obstruction x 3 (chicken pieces each time) who presents to the [facility] ED on 04/01/2024 with history of onset of sensation as though he had a piece of food stuck in his throat starting at 5 PM reporting that he had steak previous to this and sensation did not lucila prompting eventual ED evaluation. He noted this was completely similar to when he had the previous obstructions with chicken. He notes this occurred on his first bite and it was small. He refused imaging in the ED. Workup in the ED included T97.1, heart rate 98, BP 141/86, respiratory rate 18, 90% on room air with most recent repeat vitals T98.3, heart rate 72, BP 120/80, respiratory rate 16, 98% on room air, CBC with WBC 6.1, human 14, platelet 290 without marked shift, unremarkable BMP, EKG with sinus rhythm with no acute evidence of ischemia. In the ED patient administered 1 L normal saline. [facility] Medical History Former tobacco use GERD (gastroesophageal reflux disease) Barretts esophagus Food impaction of esophagus Home Medications ?Medication ?Instructions ?Recorded ?Last Taken ?Type NK 04/01/24 Unknown History Allergy/AdvReac Type Severity Reaction Status Date / Time Sulfa (Sulfonamide Allergy Hives Verified 04/02/24 12:56 Antibiotics) Family History Mother Diabetes Father Asthma Surgical History H/O left inguinal hernia repair History of back surgery H/O arthroscopic knee surgery History of tonsillectomy and adenoidectomy History of endoscopy Social History household members: none Smoking Status: Former smoker how long ago did patient quit smoking: Quit 35 years prior, 2 pack/day smoking from age 17 until quit. alcohol intake: never substance use type: does not use ROS Constitutional Constitutional: Denies fatigue, fever(s), poor appetite, weight gain or weight loss Gastrointestinal Gastrointestinal: Denies belching, bloating, change in bowel habits, change in stool character, chewing difficulty, coffee ground emesis, constipation, cramping, diarrhea, dyspepsia, dysphagia, early satiety, excessive flatus, fecal incontinence, heartburn, hematemesis, hematochezia, hemorrhoids, loose stools, melena, nausea, odynophagia, rectal bleeding, tenesmus, vomiting or weight changes Physical Exam Narrative Physical Examination: General: Awake, alert, oriented x 3 and cooperative, seated upright in bed in no apparent distress. Skin: Normal color, normal turgor, no icterus, no cyanosis. HEENT: AT/NC, EOMI, PERRLA, mildly dry MM, no carotid bruits or JVD noted, no obvious findings in the oropharynx. Lungs: CTA bilaterally, moderate effort, mild decrease BL bases, no rales, ronchi or wheezing. Heart: Regular rate and rhythm; no gallop, rub audible. Abdomen: Soft, NTTP, ND, mildly hyperactive BS, no HSM. Extremities: No cyanosis, clubbing, or edema. Neurological: Patient awake, alert, oriented as noted, cognitive function intact; pupils equally reactive to light and accommodation, cranial nerves II-XII grossly normal, moving all 4 extremities, no focal deficits, strength preserved. Psychiatric: Affect appears fatigued otherwise normal, no acute evidence of depressive or anxiety feelings. Lab / Micro Data 04/02/24 03:46 04/02/24 03:46 Labs: Laboratory Results - last 24 hr 04/01/24 21:02: WBC 6.1, RBC 4.59 L, Hgb 14.0, Hct 42.1, MCV 91.7, MCH 30.5, MCHC 33.3, RDW Std Deviation 39.6, RDW Coeff of Salome 11.8, Plt Count 298, MPV 9.2, Immature Gran % (Auto) 0.300, Neut % (Auto) 64.1, Lymph % (Auto) 24.1, [place] % (Auto) 7.4, Eos % (Auto) 3.0, Baso % (Auto) 1.1 H, Absolute Neuts (auto) 3.9, Absolute Lymphs (auto) 1.47, Nucleated RBC % 0, Sodium 140, Potassium 4.2, Chloride 107, Carbon Dioxide 28.0, Anion Gap 5, BUN 14, Creatinine 1.12, Estim Creat Clear Calc 74.29, Est GFR (MDRD) Af Amer 83, Est GFR (MDRD) Non-Af 69, BUN/Creatinine Ratio 12.5, Glucose 104, Calcium 9.1 04/02/24 03:46: WBC 5.6, RBC 4.36 L, Hgb 13.4, Hct 39.9 L, MCV 91.5, MCH 30.7, MCHC 33.6, RDW Std Deviation 39.7, RDW Coeff of Salome 11.8, Plt Count 284, MPV 9.2, Immature Gran % (Auto) 0.400, Neut % (Auto) 54.0, Lymph % (Auto) 29.2, Salem % (Auto) 10.6 H, Eos % (Auto) 4.5, Baso % (Auto) 1.3 H, Absolute Neuts (auto) 3.0, Absolute Lymphs (auto) 1.62, Nucleated RBC % 0, Sodium 141, Potassium 3.8, Chloride 109 H, Carbon Dioxide 24.0, Anion Gap 9, BUN 13, Creatinine 0.99, Estim Creat Clear Calc 77.30, Est GFR (MDRD) Af Amer 97, Est GFR (MDRD) Non-Af 80, BUN/Creatinine Ratio 13.2, Glucose 107 H, Calcium 8.7, Total Bilirubin 0.60, AST 18, ALT 27, Alkaline Phosphatase 42 L, Total Protein 6.6, Albumin 3.5, Globulin 3.1, Albumin/Globulin Ratio 1.1 Assessment & Plan Assessment/Plan (1) Esophageal foreign body: (2) Hiatal hernia: (3) Eosinophilic esophagitis: (4) Food impaction of esophagus: PLAN: Plan The patient is a 68 y/o M w/ PMHx: Former tobacco use, GERD/Richter's esophagus with history of previous foreign body esophageal obstruction x 3 (chicken pieces each time) following with Dr. Maldonado outpatient who presents to the [facility] ED on 04/01/2024 with history of onset of sensation as though he had a piece of food stuck in his throat Acute foreign body esophageal obstruction, recurrent: Unfortunately ED patient refused any imaging, EKG unremarkable, labs unremarkable, notes exact presentation with previous obstructions, will admit to medical surgical floor. Patient will undergo an upper endoscopy to evaluate his upper GI tract. He was explained alternatives, risk and benefits include understanding bleeding, infection, sepsis, perforation, need for urgent . He will have an ASA of 3. Charges/Coding Visit Charges Inpatient E&M: 46125 Init Hosp L2
[2024-04-02] VITALS (13 sets, daily range): BP systolic 101–132; BP diastolic 65–87; PULSE 71–94; RESP 16–18; TEMP 36.1–37.1; O2SAT 94–99; BMI 27.5; BMI 27.1
--- NOTE | 2024-04-02 | EGD_PTH ---
PATIENT: GISSEL GUAJARDO LOC: MS3 U#:[id number] AGE/SX: 68/M ROOM: [facility] [place]04/01/[address]: Dr. Luis Dennison DO : 1955 BED: 1 DIS: 04/02/2024 SPEC #: [id number] RECD: 04/02/24 13:36 STATUS: PAULINE ARAUJO #: [id number] JERRI: 04/02/24 00:[address]: Ra Joelhsaan DEPT: SURGICAL PATHOLOGY RECD BY: Lynne Caicedo ENTERED: 04/02/24 14:21 SP TYPE: EGD BIOPSY OT DR: DO Dr. Jannet Garces MD Dr. Steven Murray, MD Tissues: Esophagus, NOS Procedures: Special Stain Group I Surgery Specimen Level IV GMS Stain (control) Alcian Blue/PAS (control) HEADER OPERATION: EGD PRE-OP DIAGNOSIS: Esophageal foreign body, hiatal hernia, eosinophilic esophagitis, food impaction of esophagus TISSUE SUBMITTED: Distal esophagus biopsy MICROSCOPIC DIAGNOSIS Distal esophagus, biopsy: Fragments of gastroesophageal mucosa with acute and chronic inflammation. Intestinal metaplasia (goblet cell metaplasia) not identified. See comment. 04/03/2024 COMMENT Alcian blue/PAS stain with matched control is used in the evaluation of the specimen. Increased number of eosinophils (about 15 per high power field are noted) suspicious for eosinophilic esophagitis. The specimen predominantly consists of squamous mucosa. Numerous organisms consistent with bacteria are also noted in the superficial epithelial layers. Special stain for fungi is negative for organisms; matched control is appropriate. MICROSCOPIC DESCRIPTION Slides are reviewed. GROSS DESCRIPTION Received in fixative is one container labeled with the patient's name and designated Distal esophagus biopsy. The specimen consists of multiple irregular fragments of light starr soft tissue that in aggregate measure 1 x 0.7 x 0.1 cm. The specimen is totally submitted in one cassette. 04/02/2024 TC:3 CPT:97820,72930,70353
[2024-04-02] MEDS: 0.9% Normal Saline (1000mL) 1,000 ML 100 ML IV (02:06)
[2024-04-02] MEDS: Pantoprazole Sodium 40 MG in 0.9% Normal Saline (100mL MB+) 100 ML 330 MG IV ×2 (02:06→08:54)
[2024-04-02 04:06] LABS: Absolute Lymphocyte Count 1.62 X10^3/uL (0.83-4.51); Basophil# 0.07 X10^3/uL; Basophil% 1.3 % (0-1); Eosinophil# 0.25 X10^3/uL; Eosinophils% 4.5 % (0-5); Hematocrit 39.9 % (40-54); Hemoglobin 13.4 g/dL (13.0-16.5); Lymphocyte # 1.62 X10^3/ul (0.83-4.51); Lymphocyte % 29.2 % (19-41); Mean Corp Hgb Conc 33.6 g/dL (32-36); Mean Corpuscular Hgb 30.7 pg (27.0-32.0); Mean Corpuscular Volume 91.5 fL (80-94); Mean Platelet Vol. 9.2 fl (6.2-12.0); Monocyte# 0.59 X10^3/uL; Monocyte% 10.6 % (0-10); NRBC Flagged by Analyzer 0 % (0-5); Platelet Count 284 K/mm3 (150-450); RBC Distribution Width CV 11.8 % (11.6-14.6); RBC Distribution Width SD 39.7 fl (35.1-43.9); Red Blood Count 4.36 M/mm3 (4.6-6.2); White Blood Count 5.6 K/mm3 (4.4-11.0)
[2024-04-02 04:24] LABS: ALB/GLOB Ratio 1.1 RATIO (0.9-2.4); AST(SGOT) 18 U/L (15-37); Alanine Aminotransfer ALT/SGPT 27 U/L (16-61); Albumin, Serum 3.5 g/dL (3.2-5.0); Alkaline Phosphatase 42 U/L (45-117); Anion Gap 9 (5-15); BUN 13 mg/dL (7-18); BUN/Creat Ratio 13.2 RATIO (10-20); Calcium,Total 8.7 mg/dL (8.5-10.1); Chloride 109 mmol/L (98-107); Creatinine, Serum 0.99 mg/dL (0.70-1.30); EST Glomerular Filtration Rate 80 mL/min (>60); Est Glom Filt Rate - Afr Amer 97 mL/min (>60); Globulin 3.1 g/dL (2.2-4.2); Glucose 107 mg/dL (74-106); Potassium 3.8 mmol/L (3.5-5.1); Protein, Total 6.6 g/dL (6.4-8.2); Sodium Level 141 mmol/L (136-145)
--- NOTE | 2024-04-02 13:10 | PCM.PRE.AN2 ---
ASA Classification* ASA Classification ASA Classification: 2 Assessment & Plan Anesthesia* Anesthesia Assessment Anesthesia Assessment: Discussed sedation and/or anesthesia options, risks, benefits, and alternatives with patient/parents/legal guardian/POA. Questions invited. The patient/parents/legal guardian/POA seems to understand and agrees to proceed with anesthesia plan. Reviewed the physical assessment, medical history, allergy history and patient home medications list prior to surgery/procedure/anesthetic and documented any changes. Performed airway and anesthesia risk assessments. Anesthesia Type Anesthesia Type: MAC History Source History Obtained from:: Patient and Chart Anesthesia Focused Assessment* Temperature: 98.7 F Pulse Rate: 71 Blood Pressure: 129/83 Respiratory Rate: 16 Pulse Ox: 99 Airway Assessment Mouth opens: >3 cm Mallampati Score: II Focused Labs Anesthesia Preop lab: CBC WBC 5.6 K/mm3 (4.4-11.0) 04/02/24 03:46 04/02/24 RBC 4.36 M/mm3 (4.6-6.2) L 04/02/24 03:46 04/02/24 Hgb 13.4 g/dL (13.0-16.5) 04/02/24 03:46 04/02/24 Hct 39.9 % (40-54) L 04/02/24 03:46 04/02/24 Plt Count 284 K/mm3 (150-450) 04/02/24 03:46 04/02/24 CHEMISTRY Potassium 3.8 mmol/L (3.5-5.1) 04/02/24 03:46 04/02/24 Sodium 141 mmol/L (136-145) 04/02/24 03:46 04/02/24 BUN 13 mg/dL (7-18) 04/02/24 03:46 04/02/24 Creatinine 0.99 mg/dL (0.70-1.30) 04/02/24 03:46 04/02/24 Glucose 107 mg/dL (74-106) H 04/02/24 03:46 04/02/24 COAG Pre-Assessment Diagnosis/Proposed Procedure Planned Operative Procedure(s): EGD Anesthesia History 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 When Was Last Pacemaker Check QUESTION #4 FULL TEXT: You/Your Family Experience fever (hyperthermia) with Anesthesia Last Oral Intake Last Oral intake: Last Oral Intake NPO since 00:00 04/02/24 12:24 Meds taken in AM with sips of No 04/02/24 12:24 water? 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 grazier Female HX of Motion Sickness HX of N/V After Surgery Non-Smoker Duration of Surgery greater than 60 minutes Number of Risk Factors PONV Score Height & Weight Height & Weight: Anesthesia: Height & Weight Height 6 ft 04/02/24 12:24 Weight: 91 kg 04/02/24 12:24 Body Mass Index (BMI) 27.1 04/02/24 12:24 Respiratory Assessment Respiratory Assessment - beef cattle grazier: Respiratory Tract Infection Hx - beef cattle grazier Hx Respiratory Tract Infection No 04/02/24 12:22 STOP Sleep Apnea STOP Sleep Apnea - beef cattle grazier: STOP Sleep Apnea - beef cattle grazier Hx Hypertension No 04/02/24 01:28 Hx Sleep Apnea No 04/02/24 01:28 CPAP BIPAP Do you snore loudly (louder No 04/02/24 01:28 than talking or can be heard Do you often feel tired/ No 04/02/24 01:28 fatigued/ sleepy during daytime? Has anyone observed you stop No 04/02/24 01:28 breathing during sleep? STOP Results Negative 04/02/24 01:28 QUESTION #5 FULL TEXT : Do you snore loudly (louder than talking or can be heard through closed doors)? 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 Specify any problems Hx of Preganancy in last 3 N/A 04/02/24 01:28 Months Nurse Filling Out Transfusion [email or web address] 04/02/24 01:28 & Questions: Date: 04/02/24 04/02/24 01:28 Time: 01:34 04/02/24 01:28 Patient unable to answer at this time (ie. confused, unrespo /Reproduction History /Reproductive History - beef cattle grazier: /Reproductive Hx- beef cattle grazier Hx Now Gestational Age (in weeks): EDC: Hx Hx Para Hx Section SAB Active Medications Active Medications: Current Medications Generic Name Dose Route Start Last Admin Trade Name Freq PRN Reason Stop Dose Admin Acetaminophen 650 mg 04/02/24 01:28 Acetaminophen 650 Mg Suppository RC Q4H PRN PRN Fever, pain 1-10 Albuterol Sulfate 2.5 mg 04/02/24 01:28 Albuterol 2.5 Mg/3 Ml Vial.Neb. INHALATION Q2H PRN PRN Dyspnea, wheezing Hydralazine HCl 10 mg 04/02/24 01:28 Hydralazine 20 Mg/Ml Vial IV Q4H PRN PRN SBP > 160 Protocol Pantoprazole Sodium 40 mg/ 110 mls @ 330 mls/hr 04/02/24 01:28 04/02/24 11:10 Sodium Chloride IV Infused Q12 CARLOZ Infusion Sodium Chloride 100 mls @ 15 mls/hr 04/02/24 01:37 IV .Q6H40M PRN Saline Flush Sodium Chloride 100 mls @ 15 mls/hr 04/02/24 01:37 IV .Q6H40M PRN Additional IVPB Infusion Ondansetron HCl 4 mg 04/02/24 01:28 Ondansetron 4 Mg/2 Ml Vial IV Q8H PRN PRN NAUSEA/VOMITING Prochlorperazine Edisylate 5 mg 04/02/24 01:28 Prochlorperazine 10 Mg/2 Ml Vial IV Q4H PRN PRN Breakthrough nausea/vomiting Sodium Chloride 10 - 40 ml 04/02/24 01:37 0.9% Saline Lock 10 Ml Syringe IV UD PRN SALINE FLUSH PFSH Medical History Former tobacco use GERD (gastroesophageal reflux disease) Barretts esophagus Food impaction of esophagus Home Medications ?Medication ?Instructions ?Recorded ?Last Taken ?Type NK 04/01/24 Unknown History Allergy/AdvReac Type Severity Reaction Status Date / Time Sulfa (Sulfonamide Allergy Hives Verified 04/02/24 12:56 Antibiotics) Family History Mother Diabetes Father Asthma Surgical History H/O left inguinal hernia repair History of back surgery H/O arthroscopic knee surgery History of tonsillectomy and adenoidectomy History of endoscopy Social History household members: none Smoking Status: Former smoker how long ago did patient quit smoking: Quit 35 years prior, 2 pack/day smoking from age 17 until quit. alcohol intake: never substance use type: does not use Review of Systems (Anesthesia) ROS Narrative System reviewed and no additional complaints, except as documented.
--- NOTE | 2024-04-02 13:11 | PN_ITS ---
Progress Note Patient is for upper endoscopy today. He has been n.p.o. since midnight. Physical Exam Const alert, oriented x3, no apparent distress and healthy appearing General Appearance: cooperative GI normal to inspection, nondistended, normoactive bowel sounds, soft to palpation, non-tender and non-distended Percussion: normal to percussion Rectal Exam: deferred Assessment & Plan Assessment/Plan (1) Esophageal foreign body: (2) Hiatal hernia: (3) Eosinophilic esophagitis: (4) Food impaction of esophagus: PLAN: Plan The patient is a 68 y/o M w/ PMHx: Former tobacco use, GERD/Richter's esophagus with history of previous foreign body esophageal obstruction x 3 (chicken pieces each time) following with Dr. Maldonado outpatient who presents to the [facility] ED on 04/01/2024 with history of onset of sensation as though he had a piece of food stuck in his throat Acute foreign body esophageal obstruction, recurrent: Unfortunately ED patient refused any imaging, EKG unremarkable, labs unremarkable, notes exact presentation with previous obstructions, will admit to medical surgical floor. Patient will undergo an upper endoscopy to evaluate his upper GI tract. He was explained alternatives, risk and benefits include understanding bleeding, infection, sepsis, perforation, need for urgent . He will have an ASA of 3. Visit Charges Inpatient E&M: 53347 Subs Hosp L2
--- NOTE | 2024-04-02 13:36 | OP.EGD_ITS ---
Patient Name: Jim Segovia Procedure Date: 04/02/2024 1:19 PM Date of : 1955 Age: 68 Procedure: Upper GI endoscopy Indications: Dysphagia Providers: Carter Maldonado DO Medicines: Monitored Anesthesia Care Patient Profile: This is a 68 year old male. Refer to note in patient chart for documentation of history and physical. Patient has symptoms of dysphagia with both liquids and solids. His most recent EGD for foreign body removal was one year ago. Complications: No immediate complications. Procedure: Pre-Anesthesia Assessment: - Prior to the procedure, a History and Physical was performed, and patient medications and allergies were reviewed. The patient is competent. The risks and benefits of the procedure and the sedation options and risks were discussed with the patient. All questions were answered and informed consent was obtained. Patient identification and proposed procedure were verified by the physician in the pre-procedure area. Mental Status Examination: alert and oriented. Airway Examination: normal oropharyngeal airway and neck mobility. Respiratory Examination: clear to auscultation. CV Examination: normal. Prophylactic Antibiotics: The patient does not require prophylactic antibiotics. Prior Anticoagulants: The patient has taken no anticoagulant or antiplatelet agents except for NSAID medication. ASA Grade Assessment: II - A patient with mild systemic disease. After reviewing the risks and benefits, the patient was deemed in satisfactory condition to undergo the procedure. The anesthesia plan was to use monitored anesthesia care (MAC). Immediately prior to administration of medications, the patient was re-assessed for adequacy to receive sedatives. The heart rate, respiratory rate, oxygen saturations, blood pressure, adequacy of pulmonary ventilation, and response to care were monitored throughout the procedure. The physical status of the patient was re-assessed after the procedure. After obtaining informed consent, the endoscope was passed under direct vision. Throughout the procedure, the patient's blood pressure, pulse, and oxygen saturations were monitored continuously. The Endoscope was introduced through the mouth, and advanced to the second part of duodenum. The upper GI endoscopy was accomplished without difficulty. The patient tolerated the procedure well. Scope In: 1:21:27 PM Scope Out: 1:27:29 PM Total Procedure Duration Time 0 hours 6 minutes 2 seconds Findings: Food was found in the lower third of the esophagus. Removal was accomplished with a jumbo forceps. Verification of patient identification for the specimen was done. Estimated blood loss was minimal. LA Grade C (one or more mucosal breaks continuous between tops of 2 or more mucosal folds, less than 75% circumference) esophagitis with no bleeding was found 38 to 42 cm from the incisors. Biopsies were taken with a cold forceps for histology. Verification of patient identification for the specimen was done. Estimated blood loss was minimal. A severe Schatzki ring was found at the gastroesophageal junction. A guidewire was placed and the scope was withdrawn. Dilation was performed with a Savary dilator with no resistance at 54 Fr. The dilation site was examined and showed mild improvement in luminal narrowing. Estimated blood loss was minimal. A medium-sized hiatal hernia was present. The first portion of the duodenum was normal. Impression: - Food in the lower third of the esophagus. Removal was successful. - LA Grade C reflux esophagitis with no bleeding. Biopsied. - Severe Schatzki ring. Dilated. - Medium-sized hiatal hernia. - Normal first portion of the duodenum. Recommendation: - Discharge patient to home. - Full liquid diet today. - Use Protonix (pantoprazole) 40 mg PO BID for the rest of the patient's life. - Continue present medications. Procedure Code(s): --- Professional --- 23533, Esophagogastroduodenoscopy, flexible, transoral; with removal of foreign body(s) 01880, 51, Esophagogastroduodenoscopy, flexible, transoral; with insertion of guide wire followed by passage of dilator(s) through esophagus over guide wire 09237, 59, Esophagogastroduodenoscopy, flexible, transoral; with biopsy, single or multiple CPT copyright 2021 [employer]. All rights reserved. The codes documented in this report are preliminary and upon customer service coordinator review may be revised to meet current compliance requirements. Carter Maldonado DO 04/02/2024 1:36:01 PM This report has been signed electronically. Number of Addenda: 0 Note Initiated On: 04/02/2024 1:19 PM
--- NOTE | 2024-04-02 13:36 | OP.CCLET_ITS ---
04/02/2024 Hipolito Merritt Re : Upper GI endoscopy procedure for Jim Reynagar René This procedure was performed on Tuesday, April 02, 2024. My impressions and recommendations are as follows: Impressions : - Food in the lower third of the esophagus. Removal was successful. - LA Grade C reflux esophagitis with no bleeding. Biopsied. - Severe Schatzki ring. Dilated. - Medium-sized hiatal hernia. - Normal first portion of the duodenum. Recommendations : - Discharge patient to home. - Full liquid diet today. - Use Protonix (pantoprazole) 40 mg PO BID for the rest of the patient's life. - Continue present medications. My findings are described in the full procedure note, which is enclosed. If I can be of further assistance, please feel free to contact me at . Sincerely, Carter Maldonado, 04/02/2024 1:36:01 PM This report has been signed electronically.
--- NOTE | 2024-04-02 13:40 | PCM.POST.ANE ---
Anesthesia: Postop Eval I Current Vital Signs Temperature: 97.8 F Pulse Rate: 94 Blood Pressure: 108/77 Respiratory Rate: 16 Pulse Ox: 96 Oxygen Delivery Method: Room Air Assessment Airway patent: Yes Spontaneous unlabored respirations: Yes Mental status: Awake and Calm nausea: No Vomiting: No Anesthesia Complication: No Fluid Hydration Crystalloid volume administer (ml): 30 Total IV fluid infused: 30 Progress Note Anesthesia document: Postop Eval 1 completed: Yes
--- NOTE | 2024-04-02 14:03 | PCM.POSTANE2 ---
Anesthesia Postop Eval I Sum Postop Eval Completion status Anesthesia document: Postop Eval 1 completed: Yes Anesthesia Postop Eval I Summary Anesthesia Postop Eval I Summary: Anesthesia Postop Eval I: Assessment Summary Airway patent Yes 04/02/24 13:42 [email or web address] Spontaneous unlabored Yes 04/02/24 13:42 [email or web address] respirations Mental status Awake,Calm 04/02/24 13:42 [email or web address] nausea No 04/02/24 13:42 [email or web address] Vomiting No 04/02/24 13:42 [email or web address] Anesthesia Postop Eval I: Fluid Summary Crystalloid volume administer 30 04/02/24 13:42 [email or web address] (ml) Colloids volume administered ( ml) Blood Product volume administered (ml) Total IV fluid infused 30 04/02/24 13:42 [email or web address] Anesthesia Postop Eval I: Summary Notes Anesthesia Complication No 04/02/24 13:42 [email or web address] Anesthesia Complication Comment: Post-operative progress note Anesthesia: Postop Eval II Evaluation Mental status: Awake Pain Level: 0 nausea: No Vomiting: No
--- NOTE | 2024-04-02 14:11 | PN.HOSP_ITS ---
Reason for Visit Reason for Visit: Diagnoses Eosinophilic esophagitis (04/01/24) Diaphragmatic hernia without obstruction or gangrene (04/01/24) Unspecified foreign body in esophagus causing other injury, initial encounter (04/01/24) Food in esophagus causing other injury, initial encounter (04/01/24) Subjective Subjective Saw patient at bedside this morning. Patient was sitting up comfortably in bed, conversing normally, in no acute distress. Stated that around 4 AM this morning he felt like he may have passed some the food that was stuck in his esophagus and he has felt a little bit better since then. Still has significant heartburn sensation in the low esophagus. No other acute concerns this morning. Objective Data Objective Data Vital Signs: Vital Signs Temp Pulse Resp BP Pulse Ox O2 Del Method O2 Flow Rate 97 F L 71 16 110/67 94 Room Air 2 04/02/24 14:00 04/02/24 14:00 04/02/24 14:00 04/02/24 14:00 04/02/24 14:00 04/02/24 14:00 04/02/24 13:45 Oxygen Flow Rate (L/min) 2 Oxygen Delivery Method Room Air Weight: 91 kg Body Mass Index (BMI) 27.1 Intake & Output: Intake and Output for Last 24 Hours 03/31/24 04/01/24 04/02/24 23:59 23:59 23:59 Intake Total 220 / 220 Balance 220 / 220 Lab / Micro Data 04/02/24 03:46 04/02/24 03:46 Labs: Laboratory Results - last 24 hr 04/01/24 21:02: WBC 6.1, RBC 4.59 L, Hgb 14.0, Hct 42.1, MCV 91.7, MCH 30.5, MCHC 33.3, RDW Std Deviation 39.6, RDW Coeff of Salome 11.8, Plt Count 298, MPV 9.2, Immature Gran % (Auto) 0.300, Neut % (Auto) 64.1, Lymph % (Auto) 24.1, [place] % (Auto) 7.4, Eos % (Auto) 3.0, Baso % (Auto) 1.1 H, Absolute Neuts (auto) 3.9, Absolute Lymphs (auto) 1.47, Nucleated RBC % 0, Sodium 140, Potassium 4.2, Chloride 107, Carbon Dioxide 28.0, Anion Gap 5, BUN 14, Creatinine 1.12, Estim Creat Clear Calc 74.29, Est GFR (MDRD) Af Amer 83, Est GFR (MDRD) Non-Af 69, BUN/Creatinine Ratio 12.5, Glucose 104, Calcium 9.1 04/02/24 03:46: WBC 5.6, RBC 4.36 L, Hgb 13.4, Hct 39.9 L, MCV 91.5, MCH 30.7, MCHC 33.6, RDW Std Deviation 39.7, RDW Coeff of Salome 11.8, Plt Count 284, MPV 9.2, Immature Gran % (Auto) 0.400, Neut % (Auto) 54.0, Lymph % (Auto) 29.2, [place] % (Auto) 10.6 H, Eos % (Auto) 4.5, Baso % (Auto) 1.3 H, Absolute Neuts (auto) 3.0, Absolute Lymphs (auto) 1.62, Nucleated RBC % 0, Sodium 141, Potassium 3.8, Chloride 109 H, Carbon Dioxide 24.0, Anion Gap 9, BUN 13, Creatinine 0.99, Estim Creat Clear Calc 77.30, Est GFR (MDRD) Af Amer 97, Est GFR (MDRD) Non-Af 80, BUN/Creatinine Ratio 13.2, Glucose 107 H, Calcium 8.7, Total Bilirubin 0.60, AST 18, ALT 27, Alkaline Phosphatase 42 L, Total Protein 6.6, Albumin 3.5, Globulin 3.1, Albumin/Globulin Ratio 1.1 Physical Exam Const alert, oriented x3, no apparent distress and average body habitus Constitutional Narrative: Pleasant elderly male, sitting up comfortably in bed, conversing normally, in no acute distress. General Appearance: cooperative and comfortable HEENT normocephalic, head/scalp atraumatic, hearing grossly normal bilaterally, nasal mucous membranes and turbinates normal and moist oral mucous membranes Eyes PERRL, EOMs intact bilaterally and conjunctivae normal Neck full ROM Chest inspection of chest normal Resp normal respiratory effort, normal air movement, no use of accessory muscles and clear to auscultation bilaterally Cardio regular rate, regular rhythm, no murmurs and peripheral pulses 2+ throughout GI normal to inspection, nondistended, normoactive bowel sounds, soft to palpation, non-tender and non-distended Back/Spine normal ROM Extremity normal to inspection, full ROM and no pedal edema Skin no rashes or lesions noted Neuro moves all extremities and no focal motor deficits Speech: speech normal Motor Exam: strength 5/5 throughout Psych mental status grossly normal Assessment & Plan Assessment/Plan (1) Food impaction of esophagus: (2) Esophageal stenosis: (3) Barretts esophagus: PLAN: Plan Patient is a 68-year-old male who presented [facility] ED on 04/01/2024 with food stuck in his esophagus. 1. Suspected recurrent food impaction in esophagus, history of GERD with Richter's esophagus and severe benign esophageal stenosis s/p dilation ? GI following. Had food impaction with EGD and successful food removal in 03/2020 and again in 01/2022. Balloon dilation was done for severe benign esophageal stenosis in 2021. Presentation at this time appears very similar. Planning for EGD this afternoon with Dr. Maldonado and will follow-up on result. Continue IV PPI twice daily for now. 2. Former tobacco use ? Encouraged continued cessation. DVT prophylaxis: Low risk, ambulate CODE STATUS: Full code, verified Expected disposition: Home, 1 to 2 days Total clinical time spent by myself addressing the patient's medical issues, reviewing all the data, and collaborating with patient's care team: 35 minutes. Charges/Coding Visit Charges Inpatient E&M: 73801 Subs Hosp L2
--- NOTE | 2024-04-02 15:49 | DCINST_ITS ---
Discharge Instructions Diet Discharge Diet: - (Liquid diet on day of discharge, then resume normal diet) DC O2, CPAP, BIPAP needs Home O2 Discharge instructions: No Dressing / Incision Discharge Activity: No Restrictions Follow Up Care Test Results: Test results from this visit will be discussed in further detail at your follow- up appointment, if applicable. Discharge Plan Admission Admit Date/Time: 04/01/24 22:52 Primary Reason for Your Visit: Food stuck in esophagus Attending Provider: Luis Dennison Primary Care Provider: Hipolito Merritt Consulting Providers: Jannet Grigsby Discharge Orders/Prescriptions Prescriptions: New pantoprazole [Protonix] 40 mg tablet,delayed release (DR/EC) 40 mg PO BID 30 Days Qty: 60 0RF No Action NK Referrals / Follow Up: Hipolito Merritt MD [Primary Care Provider] - Disposition Disposition (needs filled in before D/C Order can be placed): Home, Self Care
--- NOTE | 2024-04-02 15:53 | PCM.DC.SUM ---
Providers Date of Admission: 04/01/24 Date of Discharge: 04/02/24 Primary Care Physician: Dr. Hipolito Merritt MD Reason For Visit: FOOD IMPACTION Diagnosis Discharge Diagnosis (1) Food impaction of esophagus: Status: Acute Code(s): T18.128A - Food in esophagus causing other injury, initial encounter (2) Esophageal stenosis: Status: Acute Code(s): K22.2 - Esophageal obstruction (3) Barretts esophagus: Status: Acute Code(s): K22.70 - Richter's esophagus without dysplasia Medications at Discharge Home Medications NK 04/01/24 pantoprazole 40 mg tablet,delayed release (Protonix) 40 mg PO BID 30 days #60 tabs 04/02/24 Hospital Course Operations None Procedures EGD Summary of Care Provided Minutes Spent on Discharge: 35 Hospital Course: Patient is a 68-year-old male who presented [facility] ED on 04/01/2024 with food stuck in his esophagus. Short hospital course as noted below. Patient discharged home in stable condition on 04/02. 1. Suspected recurrent food impaction in esophagus, history of GERD with Richter's esophagus and severe benign esophageal stenosis s/p dilation ? GI followed. Had food impaction with EGD and successful food removal in 03/2020 and again in 01/2022. Balloon dilation was done for severe benign esophageal stenosis in 2021. Very similar presentation this time. EGD on 04/02 with food in the lower third of the esophagus that was removed successfully; also noted to have a severe Schatzki ring that was dilated and grade C reflux esophagitis. GI recommends Protonix 40 mg twice daily going forward. Patient okay for discharge home on 04/02 with plan for full liquid diet on day of discharge and resuming normal diet the next day. 2. Former tobacco use ? Encouraged continued cessation. Total clinical time spent by myself addressing the patient's medical issues, reviewing all the data, and collaborating with patient's care team: 35 minutes. Physical Exam Const alert, oriented x3, no apparent distress and average body habitus Constitutional Narrative: Pleasant elderly male, sitting up comfortably in bed, conversing normally, in no acute distress. General Appearance: cooperative and comfortable HEENT normocephalic, head/scalp atraumatic, hearing grossly normal bilaterally, nasal mucous membranes and turbinates normal and moist oral mucous membranes Eyes PERRL, EOMs intact bilaterally and conjunctivae normal Neck full ROM Chest inspection of chest normal Resp normal respiratory effort, normal air movement, no use of accessory muscles and clear to auscultation bilaterally Cardio regular rate, regular rhythm, no murmurs and peripheral pulses 2+ throughout GI normal to inspection, nondistended, normoactive bowel sounds, soft to palpation, non-tender and non-distended Back/Spine normal ROM Extremity normal to inspection, full ROM and no pedal edema Skin no rashes or lesions noted Neuro moves all extremities and no focal motor deficits Speech: speech normal Motor Exam: strength 5/5 throughout Psych mental status grossly normal Weight / BMI Weight Weight: 91 kg Body Mass Index (BMI) 27.1 ABG / Lab / Microbiology Data 04/02/24 03:46 04/02/24 03:46 Laboratory: Laboratory Results - last 24 hr 04/01/24 21:02: WBC 6.1, RBC 4.59 L, Hgb 14.0, Hct 42.1, MCV 91.7, MCH 30.5, MCHC 33.3, RDW Std Deviation 39.6, RDW Coeff of Salome 11.8, Plt Count 298, MPV 9.2, Immature Gran % (Auto) 0.300, Neut % (Auto) 64.1, Lymph % (Auto) 24.1, [place] % (Auto) 7.4, Eos % (Auto) 3.0, Baso % (Auto) 1.1 H, Absolute Neuts (auto) 3.9, Absolute Lymphs (auto) 1.47, Nucleated RBC % 0, Sodium 140, Potassium 4.2, Chloride 107, Carbon Dioxide 28.0, Anion Gap 5, BUN 14, Creatinine 1.12, Estim Creat Clear Calc 74.29, Est GFR (MDRD) Af Amer 83, Est GFR (MDRD) Non-Af 69, BUN/Creatinine Ratio 12.5, Glucose 104, Calcium 9.1 04/02/24 03:46: WBC 5.6, RBC 4.36 L, Hgb 13.4, Hct 39.9 L, MCV 91.5, MCH 30.7, MCHC 33.6, RDW Std Deviation 39.7, RDW Coeff of Salome 11.8, Plt Count 284, MPV 9.2, Immature Gran % (Auto) 0.400, Neut % (Auto) 54.0, Lymph % (Auto) 29.2, [place] % (Auto) 10.6 H, Eos % (Auto) 4.5, Baso % (Auto) 1.3 H, Absolute Neuts (auto) 3.0, Absolute Lymphs (auto) 1.62, Nucleated RBC % 0, Sodium 141, Potassium 3.8, Chloride 109 H, Carbon Dioxide 24.0, Anion Gap 9, BUN 13, Creatinine 0.99, Estim Creat Clear Calc 77.30, Est GFR (MDRD) Af Amer 97, Est GFR (MDRD) Non-Af 80, BUN/Creatinine Ratio 13.2, Glucose 107 H, Calcium 8.7, Total Bilirubin 0.60, AST 18, ALT 27, Alkaline Phosphatase 42 L, Total Protein 6.6, Albumin 3.5, Globulin 3.1, Albumin/Globulin Ratio 1.1 D/C Instructions Discharge Diet: - (Liquid diet on day of discharge, then resume normal diet) DC O2, CPAP, BIPAP Needs Home O2 Discharge instructions: No Meaningful Use Info Meaningful Use Meaningful Use Diagnoses (Choose all that apply): None applicable Ischemic Stroke Statin Dosing Therapy Reference: STATIN DOSE THERAPY REFERENCE: * Patients > 75 years receive moderate or high dose statin therapy. * Patients 75 years or YOUNGER should receive HIGH intensity statin dose unless contraindicated. You will be required to document reason for non-treatment if statin daily dose does not meet guidelines. HIGH DOSE STATIN THERAPY DAILY Atorvastatin > than or = to 40 mg Rosuvastatin > than or = to 20 mg Amlodipine + Atorvastatin > than or = to 2.5/40 mg Ezetimibe + Simvastatin 10/80 mg Simvastatin 80mg Discharge Plan Admission Admit Date/Time: 04/01/24 22:52 Primary Reason for Your Visit: Food stuck in esophagus Attending Provider: Luis Dennison Primary Care Provider: Hipolito Merritt Consulting Providers: Jannet Grigsby Discharge Orders/Prescriptions Prescriptions: New pantoprazole [Protonix] 40 mg tablet,delayed release (DR/EC) 40 mg PO BID 30 Days Qty: 60 0RF No Action NK Referrals / Follow Up: Hipolito Merritt MD [Primary Care Provider] - Disposition Disposition (needs filled in before D/C Order can be placed): Home, Self Care Charges/Coding Visit Charges Inpatient E&M: 71890 Disch Hosp >30min
== END 2024-04-02 17:15 | disposition home or self-care (01) ==
LOC: ED 21:07 → MS3 04-02 03:51
PROVIDERS: Internal Medicine Gastroenterology; Admitting Provider Family Medicine; Emergency Provider Emergency Medicine; PCP Family Medicine; Visit Provider Hospitalist
PROC: 0DJ08ZZ Inspection of Upper Intestinal Tract, Via Natural or Artificial Opening Endoscopic (ICD-10-PCS; CPT 43235; principal; 2024-04-02 15:30)
DX: T18.128A Food in esophagus causing other injury, initial encounter (principal); K44.9 Diaphragmatic hernia without obstruction or gangrene; K22.70 Barrett's esophagus without dysplasia; R13.10 Dysphagia, unspecified; K21.00 Gastro-esophageal reflux disease with esophagitis, without bleeding; K22.2 Esophageal obstruction; Z87.891 Personal history of nicotine dependence; K21.9 Gastro-esophageal reflux disease without esophagitis; R03.0 Elevated blood-pressure reading, without diagnosis of hypertension
CPT/HCPCS: 43247; 43239; 43248; 36415; 80048; 80053; 85025; 88305; 88312; 93005; 96361; 96365; 96366; 99221; 99284; A4216; C1769; G0378; J2405